=== PATIENT | female | born 1960 | race Caucasian/White ===

== ENCOUNTER → 2018-05-10 | Outpatient (CLI) | payer MEDICAID ==
[~2018-05-10] MED LIST: ACHD5005 PO; ALBU8.5H2 IH; CIPR-226 PO; FLC1T PO; FURO20TA4 PO; HCTZ12.5T GT; HYDR1CAP2 PO; IBP200T PO; LANS30CA PO; LATA2.5D5 OU; LEVO500T69 PO; LISI10TA2 PO; LVT.025T PO; METR500T PO; NF-ESOM40C PO; OLAN15TA3 PO; OMEP40CA36 PO; POTA10TA36 PO; PROP1TAB77; RANI150C11 PO; SRTR100T PO; TR5C15 TOP; TRAM50TA2 PO; ZLP10T PO; ZOLOFT; [UNRECOGNIZED DRUG - REMARK]
== END ==
LOC: ONC 08:55
PROVIDERS: ATTEND Internal Medicine Hematology & Oncology
DX: D50.9 Iron deficiency anemia, unspecified (principal); C43.59 Malignant melanoma of other part of trunk; I12.9 Hypertensive chronic kidney disease with stage 1 through stage 4 chronic kidney disease, or unspecified chronic kidney disease; N18.9 Chronic kidney disease, unspecified; K20.9 Esophagitis, unspecified; K29.70 Gastritis, unspecified, without bleeding; K44.9 Diaphragmatic hernia without obstruction or gangrene; F17.210 Nicotine dependence, cigarettes, uncomplicated; Z79.899 Other long term (current) drug therapy
CPT/HCPCS: 99214

== ENCOUNTER 2018-05-22 05:48 | Outpatient (CLI) | payer MEDICAID ==
[~2018-05-22] VITALS: Ht 154.9 cm; Wt 89.7 kg
[2018-05-22] MEDS ORDERED: LEVO25TA5 PO (15:22)
[2018-05-22] MEDS ORDERED: CALC-823 PO (15:22)
[2018-05-22] MEDS ORDERED: LISI-552 PO (15:22)
[2018-05-22] MEDS ORDERED: RANI150C4 PO (15:22)
[2018-05-22] MEDS ORDERED: HYDR25TA4 PO (15:22)
[2018-05-22] MEDS ORDERED: RT-ALBUINH IH (15:22)
== END 2018-05-22 15:35 | disposition home or self-care (01) ==
LOC: PREOP 05:48
PROVIDERS: ATTEND Surgery
DX: Z01.818 Encounter for other preprocedural examination (principal)

== ENCOUNTER 2018-05-31 09:59 | Outpatient (RCR) | payer MEDICAID ==
[~2018-05-31 09:59] MED LIST changes: +CALC-823 PO; +HYDR25TA4 PO; +LEVO25TA5 PO; +LISI-552 PO; +RANI150C4 PO; +RT-ALBUINH IH
== END 2018-06-02 | disposition home or self-care (01) ==
LOC: ONC 09:59
PROVIDERS: ATTEND Internal Medicine Hematology & Oncology
DX: D50.9 Iron deficiency anemia, unspecified (principal); C43.59 Malignant melanoma of other part of trunk; I12.9 Hypertensive chronic kidney disease with stage 1 through stage 4 chronic kidney disease, or unspecified chronic kidney disease; N18.9 Chronic kidney disease, unspecified; K20.9 Esophagitis, unspecified; K29.70 Gastritis, unspecified, without bleeding; F17.210 Nicotine dependence, cigarettes, uncomplicated; Z79.899 Other long term (current) drug therapy
CPT/HCPCS: 99213